=== PATIENT | female | born 1945 | race Caucasian/White ===

== ENCOUNTER → 2023-11-26 | Outpatient (CLI) | payer MEDICARE ==
--- NOTE | 2023-11-28 07:16 | MR ---
EXAMINATION TYPE: MR lumbar spine wo con DATE OF EXAM: 11/26/2023 COMPARISON: NONE HISTORY: Low back pain that radiates into left and right buttocks and down both legs for 4 years. Spi nal stenosis. TECHNIQUE: Multiplanar, multisequence imaging of the lumbar spine is performed without IV contrast. FINDINGS: Sagittal images of the lumbar spine show vertebral body heights to appear satisfactory. The re is severe grade 1 borderline grade 2 anterolisthesis L4 on L5 measuring 9 mm lung posterior verteb ral body margin sagittal image 8. Multilevel disc desiccation is present. There is yhvj-mu-pegdiqti d isc space narrowing at L4-L5 level. The conus medullaris is normal in position and signal ending mid L1 level. Overall heterogeneity is present. Small osseous hemangioma superior L3 endplate sagittal im age 10. Axial images show T12-L1 and L1-L2 levels to appear within normal limits. Axial images at L2-L3 level show mild to moderate facet arthropathy and ligamentum flavum hypertrophy effacing the left greater than right posterolateral thecal sac. There is tjjb-do-pvtmtsoe broad disc bulge with left paracentral disc protrusion component effacing the anterior thecal sac. There is mil d left-sided neural foraminal narrowing. Axial images at L3-L4 level show moderate facet arthropathy and ligamentum flavum hypertrophy effacin g the bilateral lateral thecal sac and mild to moderate broad disc bulge effacing the anterior thecal sac. Bilateral neural foramina are patent. Axial images at L4-L5 level show spondylolisthesis with moderate to advanced facet arthropathy and li gamentum flavum hypertrophy effacing the bilateral lateral and posterior thecal sac along with broad- based disc bulge effacing the anterior thecal sac having foraminal component causing mild to moderate right and more moderate left-sided neural foraminal narrowing with left-sided extraforaminal extensi on effacing the left L4 nerve sagittal image 4 and axial image 12. Axial images at L5-S1 level shows rshx-xh-xmfvrkqe facet arthropathy bilaterally. Spinal canal is pre served. Bilateral neural foramina are patent. IMPRESSION: Multilevel degenerative change of the lumbar spine with most prominent findings noted at L2-L3 through the L4-L5 levels. There is severe grade 1/mild grade 2 spondylolisthesis L4-L5 level no karel. Further details as discussed above.
== END | disposition home or self-care (01) ==
LOC: RADMRIMAIN 14:30
PROVIDERS: ATTEND Internal Medicine
DX: M47.816 Spondylosis without myelopathy or radiculopathy, lumbar region (principal); M43.16 Spondylolisthesis, lumbar region; M48.061 Spinal stenosis, lumbar region without neurogenic claudication
CPT/HCPCS: 72148

== ENCOUNTER → 2023-12-06 | Outpatient (CLI) | payer MEDICARE ==
--- NOTE | 2023-12-06 12:03 | XR ---
EXAMINATION TYPE: XR chest 2V DATE OF EXAM: 12/06/2023 COMPARISON: None HISTORY: 78-year-old female R05.9, unspecified, TECHNIQUE: Frontal and lateral views FINDINGS: Heart and lungs are normal in size. Hyperinflation with diffuse interstitial density. Some patchy opa city partially silhouetting the left heart margin. 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 No pleural effusion. IMPRESSION: COPD with focal opacity, possible pneumonia at the inferior lingula. Follow-up after treatment to ens ure clearance.
== END | disposition home or self-care (01) ==
LOC: RADXRMAIN 11:48
PROVIDERS: ATTEND Internal Medicine
DX: J44.9 Chronic obstructive pulmonary disease, unspecified (principal)
CPT/HCPCS: 71046

== ENCOUNTER → 2023-12-10 | Outpatient (CLI) | payer MEDICARE ==
--- NOTE | 2023-12-10 19:46 | CA ---
Transthoracic Echo Report Name: Evi Beasley Age: 78 Gender: F : 1945 Exam Date: 12/10/2023 15:43 Exam Location: [facility] Ht (in): 65 Wt (lb): 120 Ordering Physician: Melo Paul MD Attending/Referring Phys: Pick Up Attendant Tamara Haile RDCS Procedure CPT: Indications: R00.8 Other abnormalities of heart beat Cardiac Hx: Technical Quality: Good Contrast 1: Total Dose (mL): Contrast 2: Total Dose (mL): MEASUREMENTS (Male / Female) Normal Values 2D ECHO LV Diastolic Diameter PLAX 3.9 cm 4.2 - 5.9 / 3.9 - 5.3 cm LV Systolic Diameter PLAX 2.1 cm IVS Diastolic Thickness 1.2 cm 0.6 - 1.0 / 0.6 - 0.9 cm LVPW Diastolic Thickness 1.2 cm 0.6 - 1.0 / 0.6 - 0.9 cm LV Relative Wall Thickness 0.6 RV Internal Dim ED PLAX 1.7 cm LVOT Diameter 2.1 cm Aortic Root Diameter 3.2 cm LA Systolic Diameter LX 3.3 cm 3.0 - 4.0 / 2.7 - 3.8 cm LV Diastolic Volume MOD BP 46.6 cm??? 67 - 155 / 56 - 104 cm??? LV Systolic Volume MOD BP 16.4 cm??? 22 - 58 / 19 - 49 cm??? LV Ejection Fraction MOD BP 64.8 % >= 55 % LV Diastolic Volume MOD 4C 47.8 cm??? LV Systolic Volume MOD 4C 17.4 cm??? LV Ejection Fraction MOD 4C 63.6 % LV Diastolic Length 4C 6.3 cm LV Systolic Length 4C 5.3 cm LV Diastolic Volume MOD 2C 42.7 cm??? LV Systolic Volume MOD 2C 15.4 cm??? LV Ejection Fraction MOD 2C 64.0 % LV Diastolic Length 2C 5.9 cm LV Systolic Length 2C 5.2 cm M-MODE Aortic Root Diameter MM 4.1 cm LA Systolic Diameter MM 2.9 cm LA Ao Ratio MM 0.7 AV Cusp Separation MM 2.0 cm DOPPLER AV Peak Velocity 144.5 cm/s AV Peak Gradient 8.4 mmHg AI Peak Velocity 391.9 cm/s AI Peak Gradient 61.4 mmHg AI Pressure Half Time 654.1 ms Mitral E Point Velocity 61.0 cm/s Mitral A Point Velocity 83.1 cm/s Mitral E to A Ratio 0.7 MV Deceleration Time 210.8 ms MV E' Velocity 6.0 cm/s Mitral E to MV E' Ratio 10.1 TR Peak Velocity 267.2 cm/s TR Peak Gradient 28.6 mmHg Right Ventricular Systolic Press 35.4 mmHg FINDINGS Left Ventricle Left ventricular ejection fraction is estimated at 60-65%. Mildly increased septal wall thickness. Mildly increased posterior wall thickness. Normal left ventricular wall motion. Left ventricular cavity size normal. No obvious regional wall motion abnormalities. Right Ventricle Normal right ventricular size and function. Mild pulmonary hypertension. Right Atrium Normal right atrial size. Left Atrium Normal left atrial size. Mitral Valve Structurally normal mitral valve. Mild mitral regurgitation. No mitral stenosis. Aortic Valve Trileaflet aortic valve. Diffuse thickening (sclerosis) of the aortic valve cusps without reduced excursion. Aortic valve sclerosis. Thickened aortic valve without stenosis. Focal thickening of the aortic valve cusps. Moderate aortic regurgitation. Tricuspid Valve Structurally normal tricuspid valve. Mild tricuspid regurgitation. Pulmonic Valve Structurally normal pulmonic valve. Trace pulmonic regurgitation. Pericardium No pericardial or pleural effusion. Aorta Moderate aortic dilatation at the level of the sinuses of valsalva (root) 4.1cm. CONCLUSIONS Left ventricular ejection fraction is estimated at 60-65%. No obvious regional wall motion abnormalities. Mild concentric LVH Thickened aortic leaflets , Moderate aortic regurgitation Mild MR Previewed by: Dr Leon Gómez (Electronically Signed) Final Date: 10 December 2023 19:45
--- NOTE | 2023-12-12 17:18 | US ---
EXAMINATION TYPE: US carotid duplex BILAT DATE OF EXAM: 12/10/2023 COMPARISON: NONE CLINICAL INDICATION: Female, 78 years old with history of I65.29 OCCLUSION AND STENOSIS OF UNSPECIFIE D CAROTID ARTERY; stenosis TECHNIQUE: Carotid duplex ultrasound examination. Indirect Doppler criteria was utilized. FINDINGS: EXAM MEASUREMENTS: RIGHT: Peak Systolic Velocity (PSV) cm/sec ----- Right CCA: 119 ----- Right ICA: 138 ----- Right ECA: 143 ICA/CCA ratio: 1.16 RIGHT: End Diastole cm/sec ----- Right CCA: 19.1 ----- Right ICA: 43.5 ----- Right ECA: 7.4 LEFT: Peak Systolic Velocity (PSV) cm/sec ----- Left CCA: 101 ----- Left ICA: 158 ----- Left ECA: 124 ICA/CCA ratio: 1.56 LEFT: End Diastole cm/sec ----- Left CCA: 24.1 ----- Left ICA: 48.3 ----- Left ECA: 7.3 VERTEBRALS (direction of flow): Right Vertebral: Antegrade Left Vertebral: Antegrade Rhythm: Arrhythmia BLAST FURNACE SUPERVISOR NOTES: No plaque seen bilaterally IMPRESSION: No ultrasound evidence for hemodynamically significant stenosis of the bilateral visualized carotid a rterial systems. Criteria for Assigning % of Stenosis / Diameter reduction (Estimation based on the indirect measurements of the internal carotid artery velocities (ICA PSV). 1. Normal (no stenosis)=ICA PSV < 125 cm/s: ratio < 2.0: ICA EDV<40 cm/s. 2. Less than 50% stenosis=ICA PSV < 125 cm/s: ratio < 2.0: ICA EDV<40 cm/s. 3. 50 to 69% stenosis=ICA PSV of 125 to 230 cm/s: ration 2.0 ? 4.0: ICA EDV 40-100 cm/s. 4. Greater than 70% stenosis to near occlusion= ICA PSV > 230 cm/s: ratio > 4.0: ICA EDV > 100 cm/s. 5. Near occlusion= ICA PSV velocities may be low or undetectable: variable ratio and ICA EDV. 6. Total occlusion=unable to detect flow.
--- NOTE | 2023-12-15 09:47 | MM ---
Reason for Exam: Screening (asymptomatic). Last screening mammogram was performed 12 month(s) ago. Patient History: Menarche at age 13. First Full-Term at age 19. Left ovary removed at age 32. Right ovary removed at age 32. Hysterectomy at age 32. Patient has history of breast feeding. Patient used Hormonal Contraceptives for 10 years. Mother had breast cancer, age 80. Risk Values: Faiza 5 year model risk: 3.2%. NCI Lifetime model risk: 6.2%. Prior Study Comparison: 11/12/2021 Bilateral Screening Mammogram, [facility]. 12/01/2022 Bilateral Screening Mammogram, [facility]. Tissue Density: There are scattered areas of fibroglandular density. Findings: Analyzed By CAD. There is no suspicious group of microcalcifications or new suspicious mass in either breast. Overall Assessment: Benign, BI-RAD 2 Management: Screening Mammogram of both breasts in 1 year. . Patient should continue monthly self-breast exams. A clinical breast exam by your physician is recommended on an annual basis. This exam should not preclude additional follow-up of suspicious palpable abnormalities. Note on Faiza scores and lifetime risk: 1. A Faiza score greater than 3% is considered moderate risk. If this is the case, consider specialist referral to assess eligibility for a risk reducing agent. 2. If overall lifetime risk for the development of breast cancer is 20% or higher, the patient may qualify for future screening with alternating mammogram and breast MRI. Electronically signed and approved by: Miguel Steward M.D. Radiologis
== END | disposition home or self-care (01) ==
LOC: RADUSWWP 14:45
PROVIDERS: ATTEND Internal Medicine
DX: Z12.31 Encounter for screening mammogram for malignant neoplasm of breast (principal); I35.1 Nonrheumatic aortic (valve) insufficiency; I35.8 Other nonrheumatic aortic valve disorders; I65.29 Occlusion and stenosis of unspecified carotid artery; I51.7 Cardiomegaly; I34.0 Nonrheumatic mitral (valve) insufficiency; R00.8 Other abnormalities of heart beat; Z80.3 Family history of malignant neoplasm of breast
CPT/HCPCS: 77063; 77067; 93306; 93880

== ENCOUNTER 2023-12-19 07:10 | Emergency (ER) | payer MEDICARE ==
[2023-12-19 07:19] VITALS: BP 169/80; PULSE 93; RESP 18; TEMP 97.9
--- NOTE | 2023-12-19 07:38 | ED ---
General Adult HPI - General Chief complaint: Back Pain/Injury Stated complaint: Left back/hip pain Time Seen by Provider: 12/19/23 07:21 Source: patient, family, RN notes reviewed Mode of arrival: ambulatory Limitations: no limitations - History of Present Illness Initial comments: Patient is a 78-year-old female presenting to the emergency department with concerns for back pain. Patient does have chronic back pain, for years. Patient has had previous MRI. Patient states discomfort is increased the past few days. Discomfort is lower back and radiates to the left hip and leg. No weakness. No incontinence or retention of bowel or bladder. Patient did go to different emergency department a few days ago and received a pain shot, Davis, and Motrin 600. Patient does have an appointment with her back doctor this week. - Related Data Previous Rx's Medication Instructions Recorded Cyclobenzaprine [Flexeril] 10 mg PO TID PRN #12 tablet 12/19/23 Allergies Allergy/AdvReac Type Severity Reaction Status Date / Time codeine AdvReac Nausea Verified 12/19/23 07:19 Review of Systems ROS Statement: Those systems with pertinent positive or pertinent negative responses have been documented in the HPI. ROS Other: All systems not noted in ROS Statement are negative. Constitutional: Denies: fever Eyes: Denies: eye pain ENT: Denies: ear pain Cardiovascular: Denies: chest pain Gastrointestinal: Denies: abdominal pain Musculoskeletal: Reports: as per HPI, back pain Neurological: Denies: weakness Past Medical History Past Medical History: Hyperlipidemia History of Any Multi-Drug Resistant Organisms: None Reported Past Surgical History: No Surgical Hx Reported Past Psychological History: No Psychological Hx Reported Smoking Status: Never smoker Past Alcohol Use History: Occasional Past Drug Use History: None Reported General Exam Limitations: no limitations General appearance: alert, in no apparent distress Head exam: Present: normocephalic Eye exam: Present: normal appearance Neck exam: Present: normal inspection Respiratory exam: Present: normal lung sounds bilaterally Cardiovascular Exam: Present: regular rate, normal rhythm Expanded Peripheral pulses: 2+: Posterior Tibialis (R), Posterior Tibialis (L) GI/Abdominal exam: Present: soft. Absent: tenderness, pulsatile mass Extremities exam: Present: normal inspection Back exam: Present: vertebral tenderness (Minimal tenderness lower lumbar spine) Neurological exam: Present: alert. Absent: motor sensory deficit Expanded Neurological exam: Present: protecting the airway Speech: Present: fluid speech Motor strength exam: RLE: 5, LLE: 5 Eye Response: (4) open spontaneously Motor Response: (6) obeys commands Verbal Response: (5) oriented Psychiatric exam: Present: normal affect, normal mood Skin exam: Present: normal color Course Vital Signs 12/19/23 07:18 Temperature 97.9 F Pulse Rate 93 Respiratory 18 Rate Blood Pressure 169/80 O2 Sat by Pulse 98 Oximetry Medical Decision Making - Medical Decision Making Was pt. sent in by a medical professional or institution (, PA, ORTHODONTIC TREATMENT COORDINATOR, urgent care, hospital, or intermediate...) When possible be specific @ -No Did you speak to anyone other than the patient for history (EMS, parent, family, police, friend...)? What history was obtained from this source @ -Family is present and helps confirm medications patient received and other emergency department Did you review nursing and triage notes (agree or disagree)? Why? @ -I reviewed and agree with nursing and triage notes Were old charts reviewed (outside hosp., previous admission, EMS record, old EKG, old radiological studies, urgent care reports/EKG's, intermediate records)? Report findings @ -No old charts were reviewed Differential Diagnosis (chest pain, altered mental status, abdominal pain women, abdominal pain men, vaginal bleeding, weakness, fever, dyspnea, syncope, headache, dizziness, GI bleed, back pain, seizure, CVA, palpatations, mental health, musculoskeletal)? @ -Differential Back Pain: Strain, zoster, cauda equina syndrome, epidural abscess, vertebral osteomyelitis, discitis, fracture, subluxation, disc herniation, DJD, spinal stenosis, dissection, AAA, pancreatitis, peptic ulcer disease, pyelonephritis, kidney stone, this is not meant to be an all-inclusive list. EKG interpreted by me (3pts min.). @ -As above X-rays interpreted by me (1pt min.). @ -None done CT interpreted by me (1pt min.). @ -None done U/S interpreted by me (1pt. min.). @ -None done What testing was considered but not performed or refused? (CT, X-rays, U/S, labs)? Why? @ -None What meds were considered but not given or refused? Why? @ -None Did you discuss the management of the patient with other professionals (professionals i.e. , PA, ORTHODONTIC TREATMENT COORDINATOR, lab, RT, psych nurse, director social, contingents supervisor, teacher, disability liaison officer, case management social worker)? Give summary @ -No Was smoking cessation discussed for >3mins.? @ -No Was critical care preformed (if so, how long)? @ -No Were there social determinants of health that impacted care today? How? (Homelessness, low income, unemployed, alcoholism, drug addiction, transportation, low edu. Level, literacy, decrease access to med. care, halfway, rehab)? @ -No Was there de-escalation of care discussed even if they declined (Discuss DNR or withdrawal of care, Hospice)? DNR status @ -No What co-morbidities impacted this encounter? (DM, HTN, Smoking, COPD, CAD, Cancer, CVA, ARF, Chemo, Hep., AIDS, mental health diagnosis, sleep apnea, morbid obesity)? @ -None Was patient admitted / discharged? Hospital course, mention meds given and route, prescriptions, significant lab abnormalities, going to OR and other pertinent info. @ -Patient presents with acute on chronic low back pain. Patient will be provided pain medication and prescription for muscle relaxer. Patient to follow-up with her back doctor this week as planned. Undiagnosed new problem with uncertain prognosis? @ -No Drug Therapy requiring intensive monitoring for toxicity (Heparin, Nitro, Insulin, Cardizem)? @ -No Were any procedures done? @ -No Diagnosis/symptom? @ -Low back pain Acute, or Chronic, or Acute on Chronic? @ -Acute on chronic Uncomplicated (without systemic symptoms) or Complicated (systemic symptoms)? @ -Default Side effects of treatment? @ -No Exacerbation, Progression, or Severe Exacerbation? @ -No Poses a threat to life or bodily function? How? (Chest pain, [place], [place], pneumonia, PE, COPD, DKA, ARF, appy, cholecystitis, CVA, Diverticulitis, Homicidal, Suicidal, threat to staff... and all critical care pts) @ -No Disposition Clinical Impression: Low back pain Disposition: HOME SELF-CARE Condition: Stable Instructions (If sedation given, give patient instructions): Acute Low Back Pain (ED) Additional Instructions: Please follow-up with your back doctor this week as planned. Please also follow-up with your primary care physician this week. Return for increased pain, weakness, loss of control of bowel or bladder, loss of sensation, worsening symptoms, fever or other concerns. Scription has been sent to your pharmacy. Prescriptions: Cyclobenzaprine [Flexeril] 10 mg PO TID PRN #12 tablet PRN Reason: Pain Is patient prescribed a controlled substance at d/c from ED?: No Referrals: Melo Paul MD [Primary Care Provider] - 1-2 days Time of Disposition: 07:38
[2023-12-19] MEDS: KETOROLAC 15 MG/ML 1 ML VIAL IM STA (08:03)
[2023-12-19] MEDS: HYDROmorphone 1 MG/ML 1 ML SYRINGE IM STA (08:04)
== END 2023-12-19 08:36 | disposition home or self-care (01) ==
LOC: EC 07:10
DX: M54.50 Low back pain, unspecified (principal); Z88.5 Allergy status to narcotic agent
CPT/HCPCS: 99283; 96372 ×2; J1170; J1885

== ENCOUNTER → 2023-12-24 | Outpatient (CLI) | payer MEDICARE ==
--- NOTE | 2023-12-24 14:33 | XR ---
EXAMINATION TYPE: XR chest 2V DATE OF EXAM: 12/24/2023 1:53 PM CLINICAL INDICATION:Female, 78 years old with history of J18.9 PNEUMONIA, UNSPECIFIED ORGANISM; [facility] COMPARISON: Chest radiographs from 12/24/2023. TECHNIQUE: XR chest 2V Frontal and lateral views of the chest. FINDINGS: Lungs/Pleura: There is flattening of the diaphragm with increased lucency of the lungs. No evidence o f pneumothorax, pleural effusion or focal consolidation. Pulmonary vascularity: Unremarkable. Heart/mediastinum: Cardiomediastinal silhouette is unremarkable. Musculoskeletal: No acute osseous pathology. IMPRESSION: 1. No acute cardiopulmonary disease process. 2. COPD changes.
== END | disposition home or self-care (01) ==
LOC: RADXRMAIN 13:35
PROVIDERS: ATTEND Internal Medicine
DX: J44.9 Chronic obstructive pulmonary disease, unspecified (principal); J18.9 Pneumonia, unspecified organism
CPT/HCPCS: 71046

== ENCOUNTER → 2025-01-09 | Outpatient (CLI) | payer MEDICARE ==
--- NOTE | 2025-01-09 10:03 | MM ---
Reason for Exam: Screening (asymptomatic). Last mammogram was performed 1 year(s) and 1 month(s) ago. Patient History: Menarche at age 13. First Full-Term at age 19. Left ovary removed at age 32. Right ovary removed at age 32. Hysterectomy at age 32. Patient has history of breast feeding. Patient used Hormonal Contraceptives for 10 years. Mother had breast cancer, age 80. Risk Values: Faiza 5 year model risk: 3.2%. NCI Lifetime model risk: 5.7%. Prior Study Comparison: 11/12/2021 Bilateral Screening Mammogram, [facility] . 12/01/2022 Bilateral Screening Mammogram, [facility] . 12/10/2023 Bilateral MG 3D screening mammo w/cad, [facility]. Tissue Density: The breasts are heterogeneously dense, which may obscure small masses. Findings: Analyzed By CAD. There is no suspicious group of microcalcifications or new suspicious mass in either breast. Overall Assessment: Benign, BI-RAD 2 Management: Screening Mammogram of both breasts in 1 year. . Patient should continue monthly self-breast exams. A clinical breast exam by your physician is recommended on an annual basis. This exam should not preclude additional follow-up of suspicious palpable abnormalities. Note on Faiza scores and lifetime risk: 1. A Faiza score greater than 3% is considered moderate risk. If this is the case, consider specialist referral to assess eligibility for a risk reducing agent. 2. If overall lifetime risk for the development of breast cancer is 20% or higher, the patient may qualify for future screening with alternating mammogram and breast MRI. [facility], , 01/09/2025 9:59 AM. Electronically signed and approved by: Miguel Steward M.D. Radiologis
== END | disposition home or self-care (01) ==
LOC: RADMAMWWP 09:05
PROVIDERS: ATTEND Internal Medicine
DX: Z12.31 Encounter for screening mammogram for malignant neoplasm of breast (principal); R92.333 Mammographic heterogeneous density, bilateral breasts; Z80.3 Family history of malignant neoplasm of breast; Z92.0 Personal history of contraception
CPT/HCPCS: 77063; 77067